=== PATIENT | male | born 1995 | race Caucasian/White ===

== ENCOUNTER 2016-10-31 08:10 | Emergency (ER) | payer BC ==
[2016-10-31] MEDS ORDERED: LORazepam 0.5 MG Tab ONE (09:42)
--- NOTE | 2016-10-31 12:56 | EDM.PDOC ---
ED HPI GENERAL MEDICAL PROBLEM - General Chief Complaint: General Stated Complaint: EVALUATION Time Seen by Provider: 10/31/16 08:30 Source of Information: Reports: Patient, Family, RN History Limitations: Reports: No Limitations. Denies: Altered Mental Status, Language Barrier, Uncooperative - History of Present Illness INITIAL COMMENTS - FREE TEXT/NARRATIVE: [id number] This 20 yr male presents to ER for assistance with finding placement for assist with substance abuse/use. His step dad is with him and would be in agreement for this. Contacted local [facility] for assist with placement for the pt. Referred to [facility] in [facility]. Contacted [facility] in [facility] and intake taken with pt providing information to socially responsible investment adviser. State placement for treatment may not happen until next week. Pt and Dad state pt need assist now and will need assist with detox. before further placement is available. PHQ-9 completed by pt and no suicidal ideation noted. He scores a 9 out of 27 on this for depression screening. States his last use of hydromorphone was last night. States before when he tried to quit, he had severe pain to his back and head. Dad and pt state detox in the mean time would be helpful for him. Contacted [facility] again and state that ER should contact detox placement for him. HETAL Castellanos contacted detox in [place], [place] for placement and agreement for admission of pt. Ativan 0.5 mg PO given to pt to assist with transfer. 0945 Pt discharged to care of Dad and will transport pt to detox center. Onset: Today Onset Date: 10/31/16 Onset Time: 08:15 - Related Data Allergies Allergy/AdvReac Type Severity Reaction Status Date / Time No Known Allergies Allergy Verified 10/31/16 08:29 Past Medical History - Past Health History Medical/Surgical History: Denies Medical/Surgical History Social & Family History - Family History Family Medical History: Noncontributory - Tobacco Use Smoking Status *Q: Never Smoker Second Hand Smoke Exposure: Yes - Caffeine Use Caffeine Use: Reports: Energy Drinks, Soda - Alcohol Use Days Per Week of Alcohol Use: 2 Number of Drinks Per Day: 2 Total Drinks Per Week: 4 - Recreational Drug Use Recreational Drug Use: Yes Drug Use in Last 12 Months: Yes Recreational Drug Type: Reports: Other (see below) Other Recreational Drug Type: hydromorphone Recreational Drug Use Frequency: Daily Recreational Drug Last Use: t-1 ED ROS GENERAL - Review of Systems Review Of Systems: See Below Constitutional: Reports: No Symptoms. Denies: Fever, Chills HEENT: Reports: No Symptoms Respiratory: Reports: No Symptoms Cardiovascular: Reports: No Symptoms Musculoskeletal: Reports: No Symptoms Neurological: Reports: No Symptoms. Denies: Confusion, Dizziness, Change in Speech, Gait Disturbance Psychiatric: Reports: Anxiety, Depression. Denies: Hallucinations, Suicidal Ideation ED EXAM, GENERAL - Physical Exam Exam: See Below Exam Limited By: No Limitations General Appearance: Alert, No Apparent Distress Respiratory/Chest: No Respiratory Distress Neurological: Alert, Oriented, Normal Cognition, Normal Gait Psychiatric: Other (quiet, calm and responding appropriately, solemn) Skin Exam: Warm, Dry, Normal Color Course - Vital Signs Last Recorded V/S: Last Vital Signs Temp 98.6 F 10/31/16 10:16 Pulse 91 10/31/16 10:16 Resp 18 10/31/16 10:16 BP 135/88 10/31/16 10:16 Pulse Ox 100 10/31/16 10:16 - Orders/Labs/Meds Meds: Medications Discontinued Medications Generic Name Dose Route Start Last Admin Trade Name Loren PRN Reason Stop Dose Admin Lorazepam Confirm 10/31/16 09:42 10/31/16 09:43 Ativan Administered 10/31/16 09:43 0.5 mg Dose Administration 0.5 mg .ROUTE .STK-MED ONE Departure - Departure Time of Disposition: 09:45 (Discharged to care of step-dad and will transport to detox. Parent supportive of pt condition and treatment.) Disposition: Home, Self-Care 01 Condition: Good Clinical Impression: Substance abuse or dependence, Depression (emotion) - Discharge Information Referrals: PCP,None [Primary Care Provider] - Forms: ED Department Discharge
== END 2016-10-31 09:45 | disposition home or self-care (01) ==
LOC: MERGE 08:10 → LB.ED 08:10 → EDSEX 08:10 → LB.ED 09:45
DX: F32.9 Major depressive disorder, single episode, unspecified (principal); F19.20 Other psychoactive substance dependence, uncomplicated
CPT/HCPCS: 99283; A9270

== ENCOUNTER 2019-09-05 08:16 | Emergency (ER) | payer BC ==
--- NOTE | 2019-09-05 09:28 | EDM.PDOC ---
ED HPI GENERAL MEDICAL PROBLEM - General Chief Complaint: General Stated Complaint: TOOTH PAIN Time Seen by Provider: 09/05/19 08:50 Source of Information: Reports: Patient History Limitations: Reports: No Limitations - History of Present Illness INITIAL COMMENTS - FREE TEXT/NARRATIVE: This patient presents to the ED for evaluation of jaw pain and "feeling weird." He states he saw Dr. Dobbs on Thursday for jaw pain. He was given tramadol and augmentin. Over the weekend he started having episodes in which his heart would start racing, he would feel light headed, and he would experience numbness and tingling in his hands. These periods would last some time and then go away completely. He does continue to complain of jaw pain that he thinks is causing a headache. He denies any dental pain; he denies any difficulty breathing, chest pain, nausea or vomiting. He denies recent illnesses including fever, cough, shortness of breath, or sore throat. Patient does use alcohol and marijuana. He also "chews" and smokes cigarettes. He denies other drug use. Onset: Gradual Onset Date: 09/01/19 Duration: Intermittent Location: Reports: Head (TMJ area) Quality: Reports: Ache Severity: Moderate Improves with: Reports: None Worsens with: Reports: None Associated Symptoms: Reports: No Other Symptoms Left Ear Pain Score (Numeric/FACES): 3 - Related Data Allergies Allergy/AdvReac Type Severity Reaction Status Date / Time No Known Allergies Allergy Verified 10/31/16 08:29 Past Medical History - Past Health History Medical/Surgical History: Denies Medical/Surgical History Musculoskeletal History: Reports: Fracture Other Musculoskeletal History: Pt states he broke his right hand x3. Social & Family History - Family History Family Medical History: Noncontributory - Tobacco Use Smoking Status *Q: Current Some Day Smoker Years of Tobacco use: 3 Packs/Tins Daily: 0 Second Hand Smoke Exposure: No - Caffeine Use Caffeine Use: Reports: Coffee - Recreational Drug Use Recreational Drug Use: Yes Recreational Drug Type: Reports: Marijuana/Hashish Recreational Drug Use Frequency: Rarely ED ROS GENERAL - Review of Systems Review Of Systems: Comprehensive ROS is negative, except as noted in HPI. ED EXAM, GENERAL - Physical Exam Exam: See Below Exam Limited By: No Limitations General Appearance: Alert, No Apparent Distress Eye Exam: Bilateral Eye: PERRL Ears: Normal External Exam Nose: Normal Inspection Throat/Mouth: Normal Inspection Head: Atraumatic, Normocephalic, Other (Tenderness over left TMJ with palpation , no clicks.) Neck: Normal Inspection, Full Range of Motion Respiratory/Chest: No Respiratory Distress, Lungs Clear, Normal Breath Sounds, No Accessory Muscle Use Cardiovascular: Normal Peripheral Pulses, Regular Rate, Rhythm Neurological: Alert, Oriented Psychiatric: Normal Affect, Normal Mood, Anxious Skin Exam: Warm, Dry, Intact Course - Vital Signs Last Recorded V/S: Last Vital Signs Temp 36.8 C 09/05/19 08:45 Pulse 91 09/05/19 08:45 Resp 16 09/05/19 08:45 BP 137/87 09/05/19 08:45 Pulse Ox 100 09/05/19 08:45 - Orders/Labs/Meds Orders: Active Orders 24 hr Category Date Time Status EKG Documentation Completion [RC] ASDIRECTED Care 09/05/19 08:59 Active EKG 12 Lead [EK] Routine Ther 09/05/19 08:59 Ordered - Re-Assessments/Exams Free Text/Narrative Re-Assessment/Exam: 09/05/19 09:47 This patient presents to the ED for evaluation of unusual feelings and jaw pain. I believe the two issues are not related and that he has an inflammation of his left TMJ and is experiencing symptoms consistent with anxiety reaction. There is no history of anxiety in the past and he has not been on medications. There is no sign at this point of a general medical problem causing anxiety related symptoms (PE, hyperthyroidism, cardiac ischemia, asthma exacerbation, aortic dissection, other metabolic derangement, infection, etc). There are no signs of serious psychiatric decompensation warranting psychiatric hospitalization or 72 hold. No toxidrome to suggest a particular drug ingestion has been noted. Supportive outpatient management is therefore indicated. Departure - Departure Time of Disposition: 09:40 Disposition: DC/Tfer to Hospice - Home 50 Condition: Good Clinical Impression: TMJ arthralgia, Anxiety - Discharge Information Instructions: Panic Attack, [id number], Temporomandibular Joint Syndrome Referrals: PCP,None [Primary Care Provider] - Forms: ED Department Discharge Care Plan Goals: Take medications as needed for anxiety. Return to hospital or clinic as needed or if symptoms worsen or don't improve. Sepsis Event Note - Evaluation Sepsis Screening Result: No Definite Risk - Focused Exam Vital Signs: Vital Signs Temp Pulse Resp BP Pulse Ox 09/05/19 08:45 36.8 C 91 16 137/87 100 Date Exam was Performed: 09/05/19 Time Exam was Performed: 09:43 - My Orders Last 24 Hours: My Active Orders 09/05/19 08:59 EKG Documentation Completion [RC] ASDIRECTED EKG 12 Lead [EK] Routine - Assessment/Plan Last 24 Hours: My Active Orders 09/05/19 08:59 EKG Documentation Completion [RC] ASDIRECTED EKG 12 Lead [EK] Routine
== END 2019-09-05 09:08 | disposition home or self-care (01) ==
LOC: LB.ED 08:16
DX: M26.622 Arthralgia of left temporomandibular joint (principal); F41.9 Anxiety disorder, unspecified; F17.210 Nicotine dependence, cigarettes, uncomplicated
CPT/HCPCS: 93005; 99284-25

== ENCOUNTER 2019-12-12 12:21 | Emergency (ER) | payer SELFPAY ==
[2019-12-12] MEDS ORDERED: predniSONE 20 MG Tab PO ONE (13:56)
[2019-12-12] MEDS ORDERED: Albuterol/Ipratropium 3.0-0.5 MG/3 ML Neb Soln ONE (13:56)
--- NOTE | 2019-12-12 13:59 | EDM.PDOC ---
ED HPI GENERAL MEDICAL PROBLEM - General Chief Complaint: Asthma Stated Complaint: SOB, COUGH Time Seen by Provider: 12/12/19 13:51 Source of Information: Reports: Patient - History of Present Illness INITIAL COMMENTS - FREE TEXT/NARRATIVE: Pt c/o cough and wheezing for two days. Ran out of his asthma medication today. No fevers, no chest pain. 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 Social & Family History - Family History Family Medical History: Noncontributory - Caffeine Use Caffeine Use: Reports: Coffee ED ROS GENERAL - Review of Systems Review Of Systems: See Below Constitutional: Denies: Fever, Diaphoresis HEENT: Reports: No Symptoms Respiratory: Reports: Shortness of Breath, Wheezing, Cough Cardiovascular: Reports: No Symptoms. Denies: Chest Pain Endocrine: Reports: No Symptoms GI/Abdominal: Reports: No Symptoms : Reports: No Symptoms Musculoskeletal: Reports: No Symptoms Skin: Reports: No Symptoms Neurological: Reports: No Symptoms Psychiatric: Reports: No Symptoms ED EXAM, GENERAL - Physical Exam Exam: See Below Exam Limited By: No Limitations General Appearance: Alert, WD/WN, No Apparent Distress Ears: Normal External Exam Nose: Normal Inspection, Normal Mucosa Throat/Mouth: Normal Inspection, Normal Lips Head: Atraumatic, Normocephalic Neck: Normal Inspection, Supple, Non-Tender, Full Range of Motion Respiratory/Chest: No Respiratory Distress, No Accessory Muscle Use, Chest Non- Tender, Wheezing. No: Respiratory Distress Cardiovascular: Normal Peripheral Pulses, Regular Rate, Rhythm GI/Abdominal: Normal Bowel Sounds, Soft Neurological: Alert, Oriented, CN II-XII Intact, Normal Cognition, Normal Gait Course - Vital Signs Text/Narrative:: asthma exacerbation Last Recorded V/S: Last Vital Signs Temp 98.2 F 12/12/19 13:55 Pulse 88 12/12/19 13:55 Resp 20 12/12/19 13:55 BP 153/84 H 12/12/19 13:55 Pulse Ox 95 12/12/19 13:55 - Orders/Labs/Meds Labs: Laboratory Tests 12/12/19 Range/Units 12:41 COVID-19 ([facility]) Negative Meds: Medications Discontinued Medications Generic Name Dose Route Start Last Admin Trade Name Freq PRN Reason Stop Dose Admin Albuterol/Ipratropium Confirm 12/12/19 13:56 Duoneb 3.0-0.5 Mg/3 Ml Administered 12/12/19 13:57 Dose 3 ml .ROUTE .STK-MED ONE Prednisone 20 mg 12/12/19 13:56 Prednisone PO 12/12/19 13:57 ONETIME ONE - Re-Assessments/Exams Free Text/Narrative Re-Assessment/Exam: 12/12/19 13:59 Pt was given Prednisone 20mg po while in ER as well as DuoNeb tx. Free Text/Narrative Re-Assessment/Exam: 12/12/19 14:14 After DuoNeb pt felt better and lungs cleared of wheezing Rx written for Prednisone 20mg to take one table every day for five days Rx Albuterol Inhaler use as directed Departure - Departure Time of Disposition: 14:14 Disposition: Home, Self-Care 01 Condition: Good Clinical Impression: Asthma attack - Discharge Information *PRESCRIPTION DRUG MONITORING PROGRAM REVIEWED*: No *COPY OF PRESCRIPTION DRUG MONITORING REPORT IN PATIENT CORRINA: No Instructions: Asthma, Adult, [id number] Referrals: PCP,None [Primary Care Provider] - Forms: ED Department Discharge Sepsis Event Note (ED) - Focused Exam Vital Signs: Vital Signs Temp Pulse Resp BP Pulse Ox 12/12/19 13:55 98.2 F 88 20 153/84 H 95
== END 2019-12-12 14:11 | disposition home or self-care (01) ==
LOC: LB.ED 12:21
DX: J45.909 Unspecified asthma, uncomplicated (principal); Z20.828 Contact with and (suspected) exposure to other viral communicable diseases
CPT/HCPCS: 99284; U0002